=== PATIENT | female | born 2000 | race Two or more races ===

== ENCOUNTER 2021-11-28 13:10 | Inpatient (IN) | payer OTHER ==
[~2021-11-28] VITALS: Ht 152.4 cm; Wt 72.6 kg
[2021-11-28] MEDS ORDERED: PRENATAL CAPLE1 EAC1 PO (14:12)
== END 2021-11-30 12:19 | disposition home or self-care (01) | DRG 807 ==
LOC: LDR 13:10 → OB/GYN 11-29 13:29 → LDR 11-29 13:46
PROVIDERS: ADMIT Obstetrics & Gynecology; ATTEND Obstetrics & Gynecology
PROC: 10E0XZZ Delivery of Products of Conception, External Approach (ICD-10-PCS; principal; 2021-11-28)
PROC: 4A1HXCZ Monitoring of Products of Conception, Cardiac Rate, External Approach (ICD-10-PCS; 2021-11-28)
DX: O80 Encounter for full-term uncomplicated delivery (principal); Z37.0 Single live birth; Z3A.39 39 weeks gestation of pregnancy; Z20.822 Contact with and (suspected) exposure to COVID-19

== ENCOUNTER 2024-04-28 13:02 | Inpatient (IN) | payer OTHER ==
[2024-04-28] VITALS (8 sets, daily range): BP systolic 93–130; BP diastolic 48–78
[~2024-04-28] VITALS: Ht 154.9 cm; Wt 74.8 kg
[~2024-04-28 13:02] MED LIST: FLONASE16 GM; PRENATAL CAPLE1 EAC1 PO
[2024-04-28] MEDS ORDERED: OXYTOCIN 20 UNITS/500ML RL PIGGYBAG IV SCH (14:00)
[2024-04-28] MEDS ORDERED: AMPICILLIN SODIUM 2,000 MG VIAL ONE (14:38)
[2024-04-28] MEDS ORDERED: OXYTOCIN 20 UNITS/500ML RL PIGGYBAG IV ONE (14:39)
[2024-04-28] MEDS ORDERED: AMPICILLIN SODIUM 2,000 MG VIAL IV ONE (14:50)
[2024-04-28] MEDS ORDERED: OXYTOCIN 500 ML IV SCH (15:00)
[2024-04-28 16:17] LABS: PH,URINE 5.5 (5.0-8.0); URINE APPEARANCE Cloudy; URINE BACTERIA 5467.1 uL (0.0-1933); URINE BILIRRUBIN Negative (NEGATIVE); URINE BLOOD Negative; URINE COLOR Dark Yellow; URINE EPITHELIAL CELLS 126.7 uL (0.0-38.8); URINE GLUCOSE Negative (NEGATIVE); URINE LEUKOCYTE Moderate; URINE NITRATE Negative; URINE PROTEIN Negative (NEGATIVE); URINE RBC 9.6 uL (0.0-20.8); URINE WBC 428.6 uL (0.0-23.2)
[2024-04-28 16:20] LABS: URINE CAST 0.91 uL (0.0-1.40); URINE KETONE 80 (NEGATIVE)
[2024-04-28 16:35] LABS: HEMATOCRIT 43.1 % (36.0-45.00); HEMOGLOBIN 14.5 g/dL (12.0-15.00); MEAN CELL VOLUME 90.2 fL (80.00-100.00); MEAN CORPUSCULAR HEMOGLOBIN 30.4 pg (27.00-32.0); MEAN CORPUSCULAR HGB CONC 33.7 g/dl (32.0-36.0); PLATELET COUNT 170 K/uL (150-450); RED BLOOD COUNT 4.78 M/uL (4.00-6.00); RED CELL DISTRIBUTION WIDTH 14.4 % (11.5-14.5)
[2024-04-28 16:56] LABS: INR < 0.93; PARTIAL THROMBOPLASTIN TIME 28.8 SECONDS (22.0-34.0); PROTHROMBIN TIME 10.2 SECONDS (9.0-11.5)
[2024-04-28] MEDS ORDERED: AMPICILLIN SODIUM 1,000 MG VIAL IV SCH (17:00)
[2024-04-28] MEDS ORDERED: PROMETHAZINE HCL 25 MG/ML AMPUL IV STA (17:09)
[2024-04-28] MEDS ORDERED: MEPERIDINE HCL/PF 25 MG/ML VIAL IV STA (17:09)
[2024-04-28] MEDS ORDERED: ERYTHROMYCIN BASE 1 GM TUBE OP ONE (20:56)
[2024-04-28] MEDS ORDERED: CHLORHEXIDINE GLUCONATE 120 ML BOTTLE TOP ONE (20:56)
[2024-04-28] MEDS ORDERED: LIDOCAINE HCL 1% 10ML VIAL ONE (20:56)
[2024-04-28] MEDS ORDERED: OXYTOCIN 20 UNITS/1000ML RL PIGGYBAG IV ONE (20:56)
[2024-04-28] MEDS ORDERED: ERYTHROMYCIN BASE 1 GM TUBE OP SCH (21:45)
[2024-04-28] MEDS ORDERED: OXYTOCIN 1,000 ML IV SCH (21:45)
[2024-04-28] MEDS ORDERED: ACETAMINOPHEN 500 MG GEL..CAP PO PRN (21:45)
[2024-04-28] MEDS ORDERED: CHLORHEXIDINE GLUCONATE 120 ML BOTTLE TOP SCH (21:45)
[2024-04-28] MEDS ORDERED: LIDOCAINE HCL 1% 10ML VIAL IJ ONE (22:15)
[2024-04-29 02:31] LABS: HEMATOCRIT 40.6 % (36.0-45.00); HEMOGLOBIN 13.6 g/dL (12.0-15.00); MEAN CELL VOLUME 89.2 fL (80.00-100.00); MEAN CORPUSCULAR HEMOGLOBIN 29.9 pg (27.00-32.0); MEAN CORPUSCULAR HGB CONC 33.5 g/dl (32.0-36.0); PLATELET COUNT 166 K/uL (150-450); RED BLOOD COUNT 4.55 M/uL (4.00-6.00); RED CELL DISTRIBUTION WIDTH 14.3 % (11.5-14.5)
[2024-04-29 04:00] VITALS: BP 112/68
[2024-04-29 07:54] VITALS: BP 108/59
[2024-04-29] MEDS ORDERED: PNV,CALCIUM 72/IRON/FOLIC ACID 1 TAB TABLET PO SCH (09:00)
[2024-04-29 12:29] VITALS: BP 118/81
[2024-04-29 16:34] VITALS: BP 118/77
[2024-04-30] VITALS: BP 113/75
[2024-04-30 08:00] VITALS: BP 107/70
[2024-04-30 12:00] VITALS: BP 111/72
[2024-04-30 15:30] VITALS: BP 112/77
== END 2024-04-30 15:41 | disposition home or self-care (01) | DRG 807 ==
LOC: LDR 13:02 → OB/GYN 04-29 07:10
PROVIDERS: ADMIT Obstetrics & Gynecology; ATTEND Obstetrics & Gynecology
PROC: 10E0XZZ Delivery of Products of Conception, External Approach (ICD-10-PCS; principal; 2024-04-28)
PROC: 0HQ9XZZ Repair Perineum Skin, External Approach (ICD-10-PCS; 2024-04-28)
PROC: 4A1HXCZ Monitoring of Products of Conception, Cardiac Rate, External Approach (ICD-10-PCS; 2024-04-28)
DX: O70.0 First degree perineal laceration during delivery (principal); Z37.0 Single live birth; Z3A.39 39 weeks gestation of pregnancy; Z20.822 Contact with and (suspected) exposure to COVID-19